=== PATIENT | male | born 1945 | race Caucasian/White ===

== ENCOUNTER 2018-12-14 10:05 | Day surgery (SDC) | payer OTHER, BC ==
[2018-12-09 17:39] VITALS: BMI 23.3
[2018-12-14] MEDS ORDERED: PROPOFOL 20 ML ONE ×2 (12:40)
[2018-12-14 12:57] VITALS: TEMP 97.8
[2018-12-14 14:41] VITALS: BP 101/65; PULSE 62
--- NOTE | 2018-12-16 15:52 | PATH ---
Surgical Pathology Report Patient Name: KARISSA THOMAS [facility]. Rec. #: [id number] /Age/Gender: 1945 (Age: 73) / M Account: [id number] Location: [facility] Taken: 12/14/2018 Received: 12/14/2018 Reported: 12/16/2018 Physicians: Canelo Garcia M.D. Specimen(s) Received A: BX SECOND PORTION DUODENUM B: BX GASTRIC ANTRUM C: BX RECTUM R/O MICROSCOPIC COLITIS Clinical History Screening, gastric polyps Postoperative diagnosis: Gastritis, normal colon Final Diagnosis A. SECOND PORTION DUODENUM, BIOPSY: DUODENUM MUCOSA WITH NO SIGNIFICANT PATHOLOGIC CHANGE. NO HISTOLOGIC EVIDENCE OF CELIAC DISEASE. B. GASTRIC ANTRUM, BIOPSY: GASTRIC MUCOSA WITH MILD CHRONIC GASTRITIS. REACTIVE GASTROPATHY PRESENT. IMMUNOSTAIN FOR H. PYLORI IS NEGATIVE. NEGATIVE FOR INTESTINAL METAPLASIA. C. RECTUM BIOPSY: COLONIC MUCOSA WITH FOCAL RECENT HEMORRHAGE AND REACTIVE LYMPHOID AGGREGATE IN THE LAMINA PROPRIA. Electronically Signed Frida Fernandez M.D. Gross Description A. Received in formalin, labeled "biopsy second portion of duodenum" are 2 fang, irregular portions of soft tissue measuring 0.3 and 0.4 cm. in greatest dimension. The specimens are submitted in toto in one cassette. B. Received in formalin, labeled "biopsy gastric antrum" are 2 fang, irregular portions of soft tissue averaging 0.4 cm. in greatest dimension. The specimens are submitted in toto in one cassette. C. Received in formalin, labeled "biopsy rectum" are 2 fang, irregular portions of soft tissue measuring 0.4 and 0.6 cm. in greatest dimension. The specimens are submitted in toto in one cassette. 12/15/201812/15/2018
== END 2018-12-14 13:30 | disposition home or self-care (01) ==
LOC: FASU-ENDO 10:05
PROVIDERS: ATTEND Internal Medicine Gastroenterology
PROC: 0DBN8ZX Excision of Sigmoid Colon, Via Natural or Artificial Opening Endoscopic, Diagnostic (ICD-10-PCS; 2018-12-14)
PROC: 0DB98ZX Excision of Duodenum, Via Natural or Artificial Opening Endoscopic, Diagnostic (ICD-10-PCS; 2018-12-14)
PROC: 0DB68ZX Excision of Stomach, Via Natural or Artificial Opening Endoscopic, Diagnostic (ICD-10-PCS; 2018-12-14)
PROC: 0D748DZ Dilation of Esophagogastric Junction with Intraluminal Device, Via Natural or Artificial Opening Endoscopic (ICD-10-PCS; 2018-12-14)
PROC: 0DBP8ZX Excision of Rectum, Via Natural or Artificial Opening Endoscopic, Diagnostic (ICD-10-PCS; principal; 2018-12-14 12:13)
DX: K29.50 Unspecified chronic gastritis without bleeding (principal); K62.89 Other specified diseases of anus and rectum; R19.7 Diarrhea, unspecified; R13.10 Dysphagia, unspecified; R12 Heartburn; Z87.19 Personal history of other diseases of the digestive system; K31.9 Disease of stomach and duodenum, unspecified
CPT/HCPCS: 88305-TC; 88342-TC

== ENCOUNTER 2020-12-13 09:07 | Day surgery (SDC) | payer OTHER, BC ==
[2020-12-08 16:45] VITALS: BMI 22.7
[2020-12-13] MEDS: CYCLOPENTOLATE 2% OPHTH SOLN 2 ML BOTTLE ONE ×3 (09:45→09:55)
[2020-12-13] MEDS: CIPROFLOXACIN 0.3% EYE DROPS 5 ML BOTTLE ONE ×3 (09:45→09:55)
[2020-12-13] MEDS: PHENYLEPHRINE 2.5% OPHTH SOLN 15 ML BOTTLE ONE ×3 (09:45→09:55)
[2020-12-13] MEDS: TROPICAMIDE 1% OPHTH SOLN 15 ML BOTTLE ONE ×3 (09:45→09:55)
[2020-12-13] MEDS ORDERED: EPINEPHrine/PF 1 MG/1 ML (1:1,000) AMPULE ONE (10:02)
[2020-12-13] MEDS ORDERED: CARBACHOL 0.01% INTRA-OCULAR 1.5 ML VIAL ONE (10:02)
[2020-12-13] MEDS ORDERED: LIDOCAINE 1% P/F 10 MG/ML VIAL ONE (10:02)
[2020-12-13] MEDS ORDERED: BSS (NA/CA/MG/K) BALANCED SALT SOLUTION OPHTH SOLN 15 ML BOTTLE ONE (10:02)
[2020-12-13] MEDS ORDERED: NEO/POLYMYX B SULF/DEXAMETH OPHTHALMIC 5ML BOTTLE ONE (10:02)
[2020-12-13] MEDS ORDERED: TETRACAINE 0.5% OPHTH SOLN 2 ML BOTTLE ONE (10:02)
[2020-12-13] MEDS ORDERED: MIDAZOLAM HCL 2 MG/2 ML SINGLE DOSE VIAL ONE (10:40)
[2020-12-13] MEDS ORDERED: PHENYLEPHRINE/KETOROLAC 4 ML VIAL IO ONE (10:42)
[2020-12-13 12:01] VITALS: PULSE 62
[2020-12-13 12:08] VITALS: BP 124/75; TEMP 98
== END 2020-12-13 12:08 | disposition home or self-care (01) ==
LOC: FASU 09:07
PROVIDERS: ATTEND Ophthalmology
PROC: 08RK3JZ Replacement of Left Lens with Synthetic Substitute, Percutaneous Approach (ICD-10-PCS; principal; 2020-12-13 10:46)
DX: H26.8 Other specified cataract (principal)
CPT/HCPCS: J1097

== ENCOUNTER 2021-01-03 08:32 | Day surgery (SDC) | payer OTHER, BC ==
[2020-12-27 12:03] VITALS: BMI 22.7
[2021-01-03] MEDS: TROPICAMIDE 1% OPHTH SOLN 15 ML BOTTLE ONE ×3 (09:03→09:16)
[2021-01-03] MEDS: PHENYLEPHRINE 2.5% OPHTH SOLN 15 ML BOTTLE ONE ×3 (09:03→09:16)
[2021-01-03] MEDS: CYCLOPENTOLATE 2% OPHTH SOLN 2 ML BOTTLE ONE ×3 (09:03→09:16)
[2021-01-03] MEDS: CIPROFLOXACIN 0.3% EYE DROPS 5 ML BOTTLE ONE ×3 (09:03→09:16)
[2021-01-03] MEDS ORDERED: CARBACHOL 0.01% INTRA-OCULAR 1.5 ML VIAL ONE (10:57)
[2021-01-03] MEDS ORDERED: BSS (NA/CA/MG/K) BALANCED SALT SOLUTION OPHTH SOLN 15 ML BOTTLE ONE (10:57)
[2021-01-03] MEDS ORDERED: NEO/POLYMYX B SULF/DEXAMETH OPHTHALMIC 5ML BOTTLE ONE (10:57)
[2021-01-03] MEDS ORDERED: TETRACAINE 0.5% OPHTH SOLN 2 ML BOTTLE ONE (10:57)
[2021-01-03] MEDS ORDERED: LIDOCAINE 1% P/F 10 MG/ML VIAL ONE (10:57)
[2021-01-03] MEDS ORDERED: PHENYLEPHRINE/KETOROLAC 4 ML VIAL IO ONE (11:06)
[2021-01-03] MEDS ORDERED: MIDAZOLAM HCL 2 MG/2 ML SINGLE DOSE VIAL ONE (11:10)
[2021-01-03 12:15] VITALS: BP 110/65; PULSE 63; TEMP 98
== END 2021-01-03 12:20 | disposition home or self-care (01) ==
LOC: FASU 08:32
PROVIDERS: ATTEND Ophthalmology
PROC: 08RJ3JZ Replacement of Right Lens with Synthetic Substitute, Percutaneous Approach (ICD-10-PCS; principal; 2021-01-03 11:18)
DX: H26.8 Other specified cataract (principal)
CPT/HCPCS: J1097